=== PATIENT | male | born 1955 | race Caucasian/White ===

== ENCOUNTER 2019-02-02 14:11 | Emergency (ER) | payer BC ==
[2019-02-02 14:50] LABS: CHLORIDE,CL 103 mEq/L (98-106); SODIUM,NA 138 mEq/L (136-145)
[2019-02-02] MEDS: Ketorolac 30 MG/ML SDV IVPUSH ONE (15:05)
--- NOTE | 2019-02-02 15:11 | EDM.PDOC ---
ED HPI GENERAL MEDICAL PROBLEM - General Chief Complaint: Back Pain or Injury Stated Complaint: left low back pain Time Seen by Provider: 02/02/19 14:45 Source of Information: Reports: Patient History Limitations: Reports: No Limitations - History of Present Illness INITIAL COMMENTS - FREE TEXT/NARRATIVE: Jaylan is a 63 yo male who presents to the ED via private vehicle with complaints of left flank pain. He states he went to sit down for lunch and immediately got a sharp stabbing pain in his back. Admits it radiates around to his groin. He states he has difficulty finding a comfortable position. Denies any history of low back injury or kidney stones. States he can urinate fine. Admits he has had some swelling in his left groin for the last 9 months and wasn 't really sure what is going on. Hasn't been seen for it. States he was kicked in the groin by a heifer on Thursday and has noticed increased swelling in his scrotum. Duration: Constant Location: Reports: Back, Radiates to (groin) Quality: Reports: Sharp, Stabbing Improves with: Reports: None Worsens with: Reports: None Left Lower Back Pain Score (Numeric/FACES): 8 - Related Data Allergies Allergy/AdvReac Type Severity Reaction Status Date / Time No Known Allergies Allergy Verified 02/02/19 14:14 Home Meds: Home Meds . [No Known Home Meds] 02/02/19 [History] Past Medical History Musculoskeletal History: Reports: Arthritis - Past Surgical History GI Surgical History: Reports: Hernia, Inguinal Social & Family History - Tobacco Use Smoking Status *Q: Never Smoker Second Hand Smoke Exposure: No ED ROS GENERAL - Review of Systems Review Of Systems: See Below Constitutional: Reports: No Symptoms HEENT: Reports: No Symptoms Respiratory: Reports: No Symptoms Cardiovascular: Reports: No Symptoms Endocrine: Reports: No Symptoms GI/Abdominal: Reports: No Symptoms, Nausea. Denies: Constipation, Diarrhea, Vomiting : Reports: No Symptoms Musculoskeletal: Reports: Back Pain Neurological: Reports: No Symptoms Psychiatric: Reports: No Symptoms ED EXAM,LOWER BACK PAIN/INJURY - Physical Exam Exam: See Below Exam Limited By: No Limitations General Appearance: Alert, Mild Distress, Moderate Distress Head: Atraumatic, Normocephalic Neck: Normal Inspection, Supple Respiratory/Chest: No Respiratory Distress, Lungs Clear, Normal Breath Sounds, No Accessory Muscle Use GI/Abdominal: Soft, No Organomegaly, Tender (LLQ, groin) Back Exam: Full Range of Motion, CVA Tenderness (L). No: CVA Tenderness (R) Neurological: Alert, Normal Mood/Affect Psychiatric: Normal Affect, Normal Mood Skin Exam: Warm, Dry, Intact, Normal Color, No Rash Course - Vital Signs Last Recorded V/S: Last Vital Signs Temp 96.8 F 02/02/19 16:52 Pulse 82 02/02/19 16:52 Resp 20 02/02/19 16:52 BP 188/113 H 02/02/19 16:52 Pulse Ox 99 02/02/19 16:52 - Orders/Labs/Meds Orders: Active Orders 24 hr Category Date Time Status Abdomen Pelvis wo Cont [CT] Stat Exams 02/02/19 14:55 Taken Labs: Laboratory Tests 02/02/19 02/02/19 02/02/19 Range/Units 14:25 14:25 14:30 WBC 13.7 H (5.0-10.0) 10^3/uL RBC 4.84 (4.50-6.00) 10^6/uL Hgb 14.9 (14.0-18.0) g/dL Hct 43.9 (40.0-54.0) % MCV 90.7 (82.0-94.0) fL MCH 30.8 (27.0-32.0) pg MCHC 33.9 (33.0-38.0) g/dL RDW Coeff of Bradley 14.4 (11.0-15.0) % Plt Count 353 (150-400) 10^3/uL Neut % (Auto) 77.2 (35-85) % Lymph % (Auto) 15.1 (10-55) % Day % (Auto) 7.2 (0-16) % Eos % (Auto) 0.4 (0-5) % Baso % (Auto) 0.1 (0-3) % Neut # (Auto) 10.60 H (1.80-7.00) 10^3/uL Lymph # (Auto) 2.07 (1.00-4.80) 10^3/uL Day # (Auto) 0.99 H (0.00-0.80) 10^3/uL Eos # (Auto) 0.06 (0.00-0.45) 10^3/uL Baso # (Auto) 0.02 10^3/uL Sodium 138 (136-145) mEq/L Potassium 3.8 (3.5-5.0) mEq/L Chloride 103 (98-106) mEq/L Carbon Dioxide 26 (21-32) mmol/L BUN 10 (7-18) mg/dL Creatinine 1.2 (0.7-1.3) mg/dL Est Cr Clr Drug Dosing 67.11 mL/min Estimated GFR (MDRD) > 60 (>=60) mL/min Glucose 103 H (75-99) mg/dL Calcium 9.0 (8.4-10.1) mg/dL Total Bilirubin 0.6 (0.0-1.0) mg/dL AST 18 (15-37) U/L ALT 21 (12-78) U/L Alkaline Phosphatase 130 H (46-116) U/L C-Reactive Protein 2.7 H (0.2-0.8) mg/dL Total Protein 7.9 (6.4-8.2) g/dL Albumin 3.9 (3.4-5.0) g/dL Urine Color Yellow (YELLOW) Urine Appearance Clear (CLEAR) Urine pH 5.5 (4.5-8.0) Ur Specific [place] 1.020 (1.003-1.020) Urine Protein Negative (NEGATIVE) mg/dL Urine Glucose (UA) Negative (NEGATIVE) mg/dL Urine Ketones Negative (NEGATIVE) mg/dL Urine Occult Blood Small H (NEGATIVE) Urine Nitrite Negative (NEGATIVE) Urine Bilirubin Negative (NEGATIVE) Urine Urobilinogen 0.2 (0.2-1.0) EU/dL Ur Leukocyte Esterase Negative (NEGATIVE) Urine RBC 0-5 (0-5) /HPF Urine WBC 0-5 (0-5) /HPF Ur Squamous Epith Cells Occasional H (NOT SEEN) /HPF Urine Bacteria Few H (NOT SEEN) /HPF Urine Mucus Few H (NOT SEEN) /HPF Meds: Medications Discontinued Medications Generic Name Dose Route Start Last Admin Trade Name Freq PRN Reason Stop Dose Admin Ketorolac Tromethamine 30 mg 02/02/19 15:02 02/02/19 15:05 Toradol IVPUSH 02/02/19 15:03 30 mg ONETIME ONE Administration Orphenadrine Citrate 60 mg 02/02/19 17:14 02/02/19 17:21 Norflex IV 02/02/19 17:15 60 mg NOW STA Administration - Re-Assessments/Exams Free Text/Narrative Re-Assessment/Exam: 02/02/19 15:13 Urinalysis did show hematuria and will proceed with CT of the abdomen/pelvis to rule out nephrolithiasis. 30mg of Toradol given intravenously for pain. 02/02/19 17:50 CT of the abdomen/pelvis showed no sign of kidney stones. Larege fat-containing left inguinal hernia with no sign of strangulation. Departure - Departure Time of Disposition: 17:51 Disposition: Home, Self-Care 01 Clinical Impression: Muscle spasm of back, Uncontrolled hypertension, Inguinal hernia of left side without obstruction or gangrene - Discharge Information Forms: ED Department Discharge Additional Instructions: 1) In regards to blood pressure, recommend taking Lisinopril 20mg daily. Recheck in clinic on Thursday or Thursday 2) Inguinal hernia will need surgical consultation, recommend discussing at upcoming clinic appointment 3) Toradol 10mg - 1 tablet every 8 hours as needed for pain 4) Flexeril 10mg - 1 table every 8 hours for muscle spasms. 5) Recommend light stretching as discussed 6) May apply heat and or ice to area 7) If symptoms worsen or any concerns at all, recommend returning to ED. - Problem List & Annotations (1) Inguinal hernia of left side without obstruction or gangrene SNOMED Code(s): 529436134 Code(s): K40.90 - UNIL INGUINAL HERNIA, W/O OBST OR GANGR, NOT SPCF RECUR Status: Acute Current Visit: Yes (2) Muscle spasm of back SNOMED Code(s): 890100735 Code(s): M62.830 - MUSCLE SPASM OF BACK Status: Acute Current Visit: Yes (3) Uncontrolled hypertension SNOMED Code(s): 67129775, 21442713 Code(s): I10 - ESSENTIAL (PRIMARY) HYPERTENSION Status: Acute Current Visit: Yes - My Orders Last 24 Hours: My Active Orders 02/02/19 14:55 Abdomen Pelvis wo Cont [CT] Stat - Assessment/Plan Last 24 Hours: My Active Orders 02/02/19 14:55 Abdomen Pelvis wo Cont [CT] Stat Plan: See course and additional instructions.
== END 2019-02-02 18:20 | disposition home or self-care (01) ==
LOC: CC.ED 14:11
DX: K40.90 Unilateral inguinal hernia, without obstruction or gangrene, not specified as recurrent (principal); M62.830 Muscle spasm of back; I10 Essential (primary) hypertension; R31.9 Hematuria, unspecified
CPT/HCPCS: 36415; 74176; 80053; 81001; 85025; 86140; 96374; 96375; 99284-25; J1885; J2360

== ENCOUNTER → 2019-02-24 | Day surgery (SDC) | payer BC ==
[~2019-02-24] MED LIST: Acetaminophen/oxyCODONE 325-5 MG Tab PO PRN; Ketorolac 30 MG/ML SDV IVPUSH ONE; Morphine 4 MG/ML Syringe IVPUSH PRN; Ondansetron 4 MG/2 ML SDV IV ONE; Ondansetron 4 MG/2 ML SDV IVPUSH PRN; Propofol 200 MG/20 ML SDV IV ONE; Sodium Chloride 0.9% 10 ML Syringe FLUSH PRN; ceFAZolin 1 GM Vial IVPUSH ONE; fentaNYL 100 MCG/2 ML SDV IV ONE
[2019-02-24] MEDS: Lactated Ringers 1,000 ML IV SCH ×2 (12:57→18:13)
--- NOTE | 2019-02-24 16:44 | OR ---
DATE OF OPERATION: 02/24/2019 PREOPERATIVE DIAGNOSIS: LEFT INGUINAL HERNIA. POSTOPERATIVE DIAGNOSIS: LEFT INDIRECT INGUINAL HERNIA. SURGEON: Jignesh Calhoun MD PROCEDURE: OPEN REPAIR OF LEFT INDIRECT INGUINAL HERNIA WITH MESH. ANESTHESIA: General. ESTIMATED BLOOD LOSS: Minimum. SPECIMEN: None. INDICATIONS: This 63-year-old male has a large left inguinal hernia. DESCRIPTION OF PROCEDURE: After adequate preparation, a transverse incision was made over the left groin and carried down through the external oblique and this showed a large hernia down into the scrotum of the left side. This was somewhat difficult to elevate out of the inguinal canal. He had a very thick cremasteric fascia layer. I was able to separate the cord from the hernia and by manipulation was able to reduce the hernia, which contained by visualization through the sac just omentum. I decided to just simply reduce the sac and not amputate it, this left a 2 cm defect at the deep inguinal ring. A pre-cut Prolene mesh was used to then block the inguinal floor. A 0 running Prolene suture was used to sew in the inferior edge of the mesh and interrupted 0 Prolene sutures were used to tack the mesh to the rectus sheath underneath the external abdominal oblique. A keyhole had been made in the mesh. This was encircled around the cord structures and then anchored laterally with Prolene. The external oblique was then resewn back together to cover the mesh in the inguinal canal. A 4-0 Vicryl was used for the skin. AMADOU/ANJELICA /[id number]
[2019-02-24] MEDS: Acetaminophen/oxyCODONE 325-5 MG Tab PO PRN (18:16)
[2019-02-25] MEDS: Acetaminophen/oxyCODONE 325-5 MG Tab PO PRN ×2 (00:16→07:33)
[2019-02-25] MEDS: Lactated Ringers 1,000 ML IV SCH (03:08)
--- NOTE | 2019-02-25 08:39 | PCM.SN ---
- Free Text/Narrative Note: Stable POD #1. Pain controlled. Moderate inguinal swelling. Wound otherwise clean and dry. PO adequate. Can discharge today. Percocet #20 given for pain control. Off work next week, light duty from 4-15 to 4-21. Can return to full duty 4-22.
== END | disposition home or self-care (01) ==
LOC: CC.SDS 12:41
PROVIDERS: ATTEND Surgery
DX: K40.90 Unilateral inguinal hernia, without obstruction or gangrene, not specified as recurrent (principal); I10 Essential (primary) hypertension; Z79.899 Other long term (current) drug therapy
CPT/HCPCS: A9270-GY; J0690; J1885; J2270; J2405; J2704; J3010; J7120

== ENCOUNTER 2023-01-04 10:52 | Emergency (ER) | payer MEDICARE, BC ==
[2023-01-04] MEDS: Glucagon,Human Recombinant 1 MG Vial IVPUSH ONE (11:03)
== END 2023-01-04 12:05 | disposition home or self-care (01) ==
LOC: CC.ED 10:52
DX: R13.19 Other dysphagia (principal); M19.90 Unspecified osteoarthritis, unspecified site; Z79.899 Other long term (current) drug therapy
CPT/HCPCS: 96374; 99283-25; 99284; J1610

== ENCOUNTER → 2023-01-09 | Day surgery (SDC) | payer MEDICARE, BC ==
[~2023-01-09] MED LIST changes: -Acetaminophen/oxyCODONE 325-5 MG Tab PO PRN; +Ketamine 200 MG/20 ML MDV ONE; -Ketorolac 30 MG/ML SDV IVPUSH ONE; +Lidocaine 2% 5 ML SDV ONE; -Morphine 4 MG/ML Syringe IVPUSH PRN; -Ondansetron 4 MG/2 ML SDV IV ONE; -Ondansetron 4 MG/2 ML SDV IVPUSH PRN; -Propofol 200 MG/20 ML SDV IV ONE; +Propofol 200 MG/20 ML SDV ONE; -Sodium Chloride 0.9% 10 ML Syringe FLUSH PRN; -ceFAZolin 1 GM Vial IVPUSH ONE; -fentaNYL 100 MCG/2 ML SDV IV ONE; +fentaNYL 50 MCG/ML SDV ONE
[2023-01-09] MEDS: Lactated Ringers 1,000 ML IV SCH (11:20)
== END ==
LOC: CC.SDS 10:51
PROVIDERS: ATTEND Family Medicine
DX: K25.9 Gastric ulcer, unspecified as acute or chronic, without hemorrhage or perforation (principal); K21.9 Gastro-esophageal reflux disease without esophagitis; K29.80 Duodenitis without bleeding; K29.70 Gastritis, unspecified, without bleeding; M19.90 Unspecified osteoarthritis, unspecified site; Z98.890 Other specified postprocedural states; Z79.899 Other long term (current) drug therapy
CPT/HCPCS: 00731; 87081; 88305; 88342; J2704; J3010; J3490; J7120